=== PATIENT | male | born 1995 | race African-American/Black ===

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

== ENCOUNTER 2018-06-24 08:37 | Emergency (ER) | payer SELFPAY ==
[2018-06-24] MEDS ORDERED: AZITHROMYCIN 1 GM SUSP PACKET PO ONE (09:30)
[2018-06-24] MEDS ORDERED: LIDOCAINE 1% INJ-PF (10 MG/ML) 30 ML SDV INJ ONE (09:31)
[2018-06-24] MEDS ORDERED: CEFTRIAXONE INJ 250 MG VIAL IM ONE (09:31)
--- NOTE | 2018-06-24 09:33 | ER Document Report ---
HPI - HPI Time Seen by Provider: 06/24/18 09:24 Pain Level: 2 Context: Patient is a 22-year-old male who presents the emergency department with a chief complaint of penile discharge. His discharge is a milky color. He started noticing his discharge 3 days ago. He has not seen his primary care for this issue. He states that he has some dysuria along with his penile discharge he denies any fever, nausea, vomiting, diarrhea, or any other symptoms. He is sexually active and does not use condoms. - CONSTITUTIONAL Constitutional: DENIES: Fever - EENT EENT: DENIES: Sore Throat - NEURO Neurology: DENIES: Headache - CARDIOVASCULAR Cardiovascular: DENIES: Chest pain - RESPIRATORY Respiratory: DENIES: Trouble Breathing, Coughing - GASTROINTESTINAL Gastrointestinal: DENIES: Abdominal Pain - URINARY Urinary: REPORTS: Dysuria - Milky discharge - MUSCULOSKELETAL Musculoskeletal: DENIES: Extremity pain - DERM Skin Color: Normal Skin Problems: None Past Medical History - Social History Smoking Status: Current Some Day Smoker Frequency of alcohol use: None Drug Abuse: None Family History: Reviewed & Not Pertinent Renal/ Medical History: Denies: Hx Peritoneal Dialysis - Immunizations Immunizations up to date: Yes Hx Diphtheria, Pertussis, Tetanus Vaccination: Yes Vertical Provider Document - CONSTITUTIONAL Exam Limitations: No Limitations - INFECTION CONTROL TRAVEL OUTSIDE OF THE [place] IN LAST 30 DAYS: No - HEENT HEENT: Atraumatic, Normocephalic - NECK Neck: Normal Inspection - RESPIRATORY Respiratory: Breath Sounds Normal, No Respiratory Distress - CARDIOVASCULAR Cardiovascular: Regular Rate, Regular Rhythm Pulses: Normal: Radial - GI/ABDOMEN Gastrointestinal: Abdomen Soft - MUSCULOSKELETAL/EXTREMETIES Musculoskeletal/Extremeties: FROM - NEURO Level of Consciousness: Awake, Alert, Appropriate Motor/Sensory: No Motor Deficit, No Sensory Deficit - DERM Integumentary: Warm, Dry Course - Re-evaluation Re-evalutation: 06/24/18 09:32 Patient will be empirically treated for gonorrhea and chlamydia due to his symptoms. He is in agreement's with this plan. Verbal discharge instructions were given to the patient. They verbalized understanding. They are stable for discharge. Discharge - Discharge Clinical Impression: Penile discharge, Dysuria Condition: Stable Disposition: HOME, SELF-CARE Additional Instructions: You need to use protection every time you have sex. Failure to do so can result in transmission of infections or unintended . You have been treated for an sexually transmitted infection (STI) today. All of your partners should be tested and treated as they are also likely to be infected. Please return if you develop abdominal pain, fever, persistent vomiting, or any other symptoms that are concerning to you. Referrals: MAKSIM FINK MD [Primary Care Provider] - Follow up as needed
[2018-06-24 09:36] VITALS: BP 181/90
[2018-06-24 11:50] LABS: CHLAM PCR NOT DETECTED (NOT DETECT); GON PCR DETECTED (NOT DETECT)
== END 2018-06-24 10:13 | disposition home or self-care (01) ==
LOC: ER 08:37
DX: R36.9 Urethral discharge, unspecified (principal); R30.0 Dysuria; F17.200 Nicotine dependence, unspecified, uncomplicated
CPT/HCPCS: 99283; 96372; 87491; 87591; J3490; Q0144; J0696

== ENCOUNTER 2019-09-20 14:04 | Emergency (ER) | payer SELFPAY ==
[2019-09-20 14:07] VITALS: BP 154/95
--- NOTE | 2019-09-20 14:34 | ER Document Report ---
HPI - HPI Patient complains to provider of: Injury to glans penis Time Seen by Provider: 09/20/19 14:20 Onset: Other - 6 days ago Onset/Duration: Sudden Severity: Mild Pain Level: 1 Context: Patient is a 24-year-old male comes the emergency room complaining of the pain to the end of his glans penis in his zipper 6 days ago. Patient states and denies any pain currently however he does state when he gets an erection that he has some discomfort and he has noticed some redness surrounding the area. Patient states he is uncircumcised and that the injury occurred on the glans penis itself. - CONSTITUTIONAL Constitutional: DENIES: Fever, Chills - URINARY Urinary: DENIES: Dysuria, Urgency, Frequency - REPRODUCTIVE Reproductive: DENIES: : Past Medical History - Social History Smoking Status: Current Every Day Smoker Cigarette use (# per day): Yes - .5 ppd Chew tobacco use (# tins/day): No Smoking Education Provided: Yes Frequency of alcohol use: Rare Drug Abuse: None Lives with: Family Family History: Reviewed & Not Pertinent Patient has suicidal ideation: No Patient has homicidal ideation: No Renal/ Medical History: Denies: Hx Peritoneal Dialysis Past Surgical History: Reports: Hx Cardiac Surgery - 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 IN LAST 30 DAYS: No - GI/ABDOMEN Gastrointestinal: Abdomen Soft, Abdomen Non-Tender - REPRODUCTIVE Male Genitalia: Abnormal Inspection Notes: Examination shows the patient has a erythematous area at the frenulum of the glans penis. Posterior detachment of the frenulum was noted. The area surrounding the glans penis on the underside is moderately erythematous with some tenderness to retraction of the foreskin. - BACK Back: Normal Inspection - NEURO Level of Consciousness: Awake, Alert Motor/Sensory: No Motor Deficit - DERM Integumentary: Warm Course - Vital Signs Vital signs: Temp Pulse Resp BP Pulse Ox 98.4 F 116 H 18 154/95 H 96 09/20/19 14:21 09/20/19 14:06 09/20/19 14:06 09/20/19 14:06 09/20/19 14:06 - EKG Interpretation by Me Rate: Normal Rhythm: NSR Discharge - Discharge Clinical Impression: Abrasion of genital area, infected Condition: Fair Disposition: HOME, SELF-CARE Additional Instructions: CELLULITIS: You have an infection of your skin and underlying soft tissues called cellulitis. This is due to bacteria, which can enter through any break in the skin, or even through an irritated hair follicle. Untreated, cellulitis will usually worsen. Antibiotics are required. Usually, warm packs or warm soaks, and elevation of the infected area are recommended. You should start getting better within 24 to 36 hours. Most infections respond quickly to the right medication. Follow-up care is important, however, to check for abscess (boil) formation, unsuspected foreign body, or resistant infection. If you develop fever, chills, or if the area of infection is becoming rapidly more swollen or painful, call the doctor at once. ANTIBIOTIC THERAPY: You have been given an antibiotic prescription. It's important that you take all the medication, unless instructed otherwise by your physician. Failure to complete the entire course can result in relapse of your condition. Common side effects of antibiotics include nausea, intestinal cramping, or diarrhea. Women may develop vaginal yeast infections, and babies can get yeast (thrush) in the mouth following the use of antibiotics. Contact your physician if you develop significant side effects from this medication. Allergy to this antibiotic can result in hives, wheezing, faintness, or itching. If symptoms of allergy occur, stop the medication and call the doctor. CLINDAMYCIN: You have been given a prescription for the antibiotic clindamycin. It is often prescribed for infections in the mouth, such as dental infections or abscesses, and for skin infections due to MRSA. It's important that you take all the medication, unless instructed otherwise by your physician. Failure to complete the entire course can result in relapse of your condition. Common side effects of antibiotics include nausea, intestinal cramping, or diarrhea. Women may develop vaginal yeast infections, and babies can get yeast (thrush) in the mouth following the use of antibiotics. Contact your physician if you develop significant side effects from this medication. Allergy to this antibiotic can result in hives, wheezing, faintness, or itching. If symptoms of allergy occur, stop the medication and call the doctor. FOLLOW-UP CARE: If you have been referred to a physician for follow-up care, call the physicians office for an appointment as you were instructed or within the next two days. If you experience worsening or a significant change in your symptoms, notify the physician immediately or return to the Emergency Department at any time for re-evaluation.\ You have been given Cleocin antibiotic cream applied to the area every 6 hours for 7 days. Prescriptions: Clindamycin Phosphate [Cleocin T] 60 ml TP Q4 7 Days #1 lotion Forms: Smoking Cessation Education
== END 2019-09-20 14:47 | disposition home or self-care (01) ==
LOC: ER 14:04
DX: S30.812A Abrasion of penis, initial encounter (principal); W23.0XXA Caught, crushed, jammed, or pinched between moving objects, initial encounter; F17.210 Nicotine dependence, cigarettes, uncomplicated
CPT/HCPCS: 99283

== ENCOUNTER 2020-04-11 11:03 | Emergency (ER) | payer SELFPAY ==
--- NOTE | 2020-04-11 13:04 | ER Document Report ---
ED Eye Complaint - General Chief Complaint: Drainage from Eye Stated Complaint: LEFT EYE IRRITATION/REDNESS Time Seen by Provider: 04/11/20 12:58 TRAVEL OUTSIDE OF THE [place] IN LAST 30 DAYS: No - HPI Notes: 24-year-old male presents to ED for evaluation of eye problem for the last 2 days. Patient reports awakening with a purulent yellow/green drainage from the left eye with crusting. Notes increased tearing. Denies foreign body sensation. Denies trauma or injury. That he may have had a fly near his eye but he does not believe it went into the eye or struck him in the eye. Denies any visual changes. Denies any ear pain, sore throat, fevers, chills, nausea, vomiting, chest pain, shortness of breath, neck pain or rash. Patient does not wear contact lenses. 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 HENT: Negative for sore throat. Eyes: Negative for visual changes. + left eye drainage. Cardiovascular: Negative for chest pain. Respiratory: Negative for shortness of breath. Gastrointestinal: Negative for abdominal pain, vomiting or diarrhea. Genitourinary: Negative for dysuria. Musculoskeletal: Negative for back pain. Skin: Negative for rash. Neurological: Negative for headaches, weakness or numbness. 10 point ROS negative except as marked above and in HPI. Physical Exam - Vital signs Vitals: Temp Pulse Resp BP Pulse Ox 98.1 F 97 18 151/86 H 99 04/11/20 11:07 04/11/20 11:07 04/11/20 11:07 04/11/20 11:07 04/11/20 11:07 General: No acute distress. Alert and oriented x3. Sitting comfortably in a stretcher. Skin: No jaundice, pallor, petechiae, or rashes. Warm and dry. HEENT: Normocephalic, atraumatic. Pupils are equal round reactive to light and accommodation. Extraocular movements are intact. Left eye with scleral and conjunctival injection. + purulent drainage and crusting of lashes. No eyelid swelling. TMs without erythema or bulging. Canals are clear. Nares patent without any discharge. Teeth in good condition. Pharynx without erythema, edema, or exudates. Mucous membranes moist. No tonsillar enlargement. Uvula is midline. Airway is patent. Neck: Supple with no lymphadenopathy. Full range of motion. Heart: Regular rate and rhythm. S1,S2. No murmurs, rubs, or gallops. Lungs: Clear to auscultation bilaterally. No wheezes, rhonchi, rales. Equal chest expansion. No retractions. Neuro: GCS 15. Moving all extremities without discomfort. Visual acuity: Documented and is in the chart. Course - Re-evaluation Re-evalutation: 04/11/20 23:21 24-year-old male presents to ED for evaluation of eye problem for the last 2 days. On physical exam, patient is found to have an scleral and conjunctival injection with crusting and drainage to the left eye. Patient most likely experiencing bacterial conjunctivitis verses periorbital cellulitis or viral conjunctivitis. Patient started on ofloxacin eye drops. Patient instructed to follow-up with PCP as well as marketing planner in the next 2-3 days. Patient understands indications to return to the ER. Patient is agreeable with this plan. - Vital Signs Vital signs: Temp Pulse Resp BP Pulse Ox 98.4 F 90 16 138/86 H 98 04/11/20 13:09 04/11/20 13:09 04/11/20 13:09 04/11/20 13:09 04/11/20 13:09 - Laboratory Results Critical Laboratory Results Reviewed: No Critical Results - Radiology Results Critical Radiology Results Reviewed: No Critical Results Discharge - Discharge Clinical Impression: Conjunctivitis Qualifiers: Conjunctivitis type: acute Acute conjunctivitis type: bacterial Laterality: left Qualified Code(s): H10.32 - Unspecified acute conjunctivitis, left eye Condition: Stable Disposition: HOME, SELF-CARE Instructions: Conjunctivitis ([facility]) Prescriptions: Ofloxacin [Ocuflox] 5 ml OP BID #1 bottle Forms: Return to Work
[2020-04-11 13:11] VITALS: BP 138/86
== END 2020-04-11 13:15 | disposition home or self-care (01) ==
LOC: ER 11:03
DX: H10.32 Unspecified acute conjunctivitis, left eye (principal)
CPT/HCPCS: 99283

== ENCOUNTER 2020-04-17 10:32 | Emergency (ER) | payer SELFPAY ==
[2020-04-17 10:37] VITALS: BP 169/93
--- NOTE | 2020-04-17 10:45 | ER Document Report ---
ED Eye Complaint - General Chief Complaint: Redness of Eye Stated Complaint: EYE IRRATATION Time Seen by Provider: 04/17/20 10:41 Primary Care Provider: [facility] [Provider Group] - Follow up as needed [facility] [Provider Group] - Follow up tomorrow Mode of Arrival: Ambulatory Information source: Patient Notes: Patient presents complaining of redness to bilateral eyes. Patient states he was treated for conjunctivitis last week with Floxin. Patient denies any improvement. Patient states that he does feel light sensitive but now has both eyes involved. Patient reports tearing, redness and purulent drainage to the eyes. Patient denies any use of contact lenses. Patient denies any trauma to the eyes. TRAVEL OUTSIDE OF THE [place] IN LAST 30 DAYS: No - HPI Onset: Last week Injury: No Occurred at: Home Exposure: Conjunctivitis Safety glasses worn: No Contact lenses worn: No Associated symptoms: Photophobia, Redness, Matting - Related Data Allergies/Adverse Reactions: No Known Allergies Allergy (Verified 04/11/20 13:01) Past Medical History - General Information source: Patient - Social History Smoking Status: Never Smoker Frequency of alcohol use: None Drug Abuse: None Occupation: Foodservice Family History: Reviewed & Not Pertinent - Medical History Medical History: Negative Renal/ Medical History: Denies: Hx Peritoneal Dialysis Past Surgical History: Reports: Hx Cardiac Surgery - 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 denies: Fever EENT: Eye pain, Eye discharge Cardiovascular: No symptoms reported Respiratory: No symptoms reported Gastrointestinal: No symptoms reported Genitourinary: No symptoms reported Male Genitourinary: No symptoms reported Musculoskeletal: No symptoms reported Skin: No symptoms reported Hematologic/Lymphatic: No symptoms reported Neurological/Psychological: No symptoms reported Physical Exam - Vital signs Vitals: Temp Pulse Resp BP Pulse Ox 97.7 F 87 20 169/93 H 98 04/17/20 10:34 04/17/20 10:34 04/17/20 10:34 04/17/20 10:34 04/17/20 10:34 - General General appearance: Appears well, Alert In distress: None - HEENT Head: Normocephalic, Atraumatic Eyes: Tears. No: Periorbital ecchymosis, Periorbital edema, Scleral icterus Conjunctiva: Injected Cornea: Normal Extraocular movements intact: Yes Eyelashes: Normal Pupils: PERRL Nasal: Normal Mouth/Lips: Normal Neck: Normal - Respiratory Respiratory status: No respiratory distress - Back Back: Normal - Extremities General upper extremity: Normal inspection, Normal ROM General lower extremity: Normal inspection, Normal ROM - Neurological Neuro grossly intact: Yes Cognition: Normal Orientation: AAOx4 [place] Coma Scale Eye Opening: Spontaneous [place] Coma Scale Verbal: Oriented [place] Coma Scale Motor: Obeys Commands [place] Coma Scale Total: 15 - Psychological Associated symptoms: Normal affect, Normal mood - Skin Skin Temperature: Warm Skin Moisture: Dry Skin Color: Normal Course - Re-evaluation Re-evalutation: 04/17/20 11:00 Patient with bilateral scleral injection and crusting drainage, patient reports purulent drainage although no purulent drainage noted today. No corneal ulcer, foreign body, abrasion or dendritic lesion. Patient encouraged to follow-up with an face burler and to call today for a follow-up appointment. Will change antibiotic in case patient was having an allergic reaction to the drops he previously been on. - Vital Signs Vital signs: Temp Pulse Resp BP Pulse Ox 97.7 F 87 20 169/93 H 98 04/17/20 10:34 04/17/20 10:34 04/17/20 10:34 04/17/20 10:34 04/17/20 10:34 - Laboratory Results Critical Laboratory Results Reviewed: No Critical Results - Radiology Results Critical Radiology Results Reviewed: No Critical Results Discharge - Discharge Clinical Impression: Conjunctivitis Qualifiers: Conjunctivitis type: unspecified Laterality: bilateral Qualified Code(s): H10.9 - Unspecified conjunctivitis Condition: Stable Disposition: HOME, SELF-CARE Instructions: Conjunctivitis ([facility]), Eyedrop Use ([facility]) Additional Instructions: Return immediately for any new or worsening symptoms Followup with your primary care provider, call tomorrow to make a followup appointment Follow-up with ophthalmology for further evaluation, call today to make a follow-up appointment Prescriptions: Olopatadine HCl [Pataday] 1 drop OP DAILY #2.5 ml Polymyxin B Sulfate/Tmp [Polytrim Oph Soln 10 ml] 1 drop BTH_EYE ASDIR #1 bottle Forms: Return to Work Referrals: [facility] [Provider Group] - Follow up as needed [facility] [Provider Group] - Follow up tomorrow
== END 2020-04-17 11:07 | disposition home or self-care (01) ==
LOC: ER 10:32
DX: H10.9 Unspecified conjunctivitis (principal)
CPT/HCPCS: 99283